=== PATIENT | female | born 1950 | race Caucasian/White ===

== ENCOUNTER 2021-06-04 20:13 | Inpatient (IN) ==
[2021-06-04] MEDS ORDERED: Lactated Ringers 1000 ml BAG 1,000 ML IV ONE (20:42)
[2021-06-04 20:55] LABS: Hematocrit 32 % (35-47); Hemoglobin 10.5 g/dL (12.0-16.0); Mean Corpuscular HGB Conc 33 g/dL (31-36); Mean Corpuscular Hemoglobin 32 pg (27-31); Mean Corpuscular Volume 96 fL (80-97); Mean Platelet Volume 7.4 fL (7.4-10.4); Platelet Count 429 10^3/uL (150-450); Red Blood Count 3.28 10^6 /uL (3.70-4.87); Red Cell Distribution Width 14 % (10-15); White Blood Count 11.8 10^3/uL (3.5-10.8)
[2021-06-04 21:06] LABS: ABS Basophils 0.1 10^3/ul (0-0.2); ABS Eosinophils 0.1 10^3/ul (0-0.6); ABS Lymphocytes 0.7 10^3/ul (1.0-4.8); ABS Monocytes 1.7 10^3/ul (0-0.8); ABS Neutrophils 9.2 10^3/ul (1.5-7.7); Eosinophil % 0.4 %; Lymphocyte % 6.2 %
[2021-06-04 21:12] LABS: ALT 11 U/L (7-52); AST 28 U/L (13-39); Albumin 3.8 g/dL (3.2-5.2); Albumin/Globulin Ratio 1.4 (1-3); Alkaline Phosphatase 66 U/L (35-149); Anion Gap 10 mmol/L (2-11); Blood Urea Nitrogen 50 mg/dL (6-24); C Reactive Protein 70.26 mg/L (<8.01); CO2 Carbon Dioxide 23 mmol/L (22-32); Chloride 98 mmol/L (101-111); EGFR African American 18.8 (>60); EGFR Non-African American 15.5 (>60); Globulin 2.8 g/dL (2-4); Glucose 77 mg/dL (70-100); Potassium 4.1 mmol/L (3.5-5.0); Sodium 131 mmol/L (135-145); Total Protein 6.6 g/dL (6.4-8.9)
[2021-06-04 21:33] LABS: Calcium 15.8 mg/dL (8.6-10.3)
[2021-06-04 22:23] LABS: Magnesium 2.2 mg/dL (1.9-2.7); Phosphorus 5.4 mg/dL (2.5-5.0)
[2021-06-04] MEDS ORDERED: Calcitonin (Salmon) INJ 200 UNITS/ML 2 ML VIAL (400 units) IM ONE (23:28)
[2021-06-05 01:18] LABS: Cholesterol 144 mg/dL; LDL Cholesterol 70 mg/dL; Triglycerides 130 mg/dL
[2021-06-05 01:20] LABS: % Iron Saturation 12 % (15-55); Iron 29 ug/dL (50-212); Total Iron Binding Capacity 252 mcg/dL (250-450); Transferrin 180 mg/dL (203-362); Unsaturated Iron Binding < 237 ug/dL
[2021-06-05 01:33] LABS: Rapid COVID-19 Molecular Undetected (Undetected)
[2021-06-05 01:45] LABS: Ferritin 299.9 ng/mL (11-307)
[2021-06-05 01:47] LABS: Folate > 20.00 ng/mL (5.90-24.80)
[2021-06-05 01:48] LABS: Vitamin B12 520 pg/mL (180-914)
[2021-06-05 01:52] LABS: Vitamin D Total 25(OH) 46.1 ng/mL (20-50)
[2021-06-05] MEDS ORDERED: Lactated Ringers 1000 ml BAG 1,000 ML IV SCH ×2 (02:00)
[2021-06-05 02:03] LABS: Urine Appearance Cloudy; Urine Bilirubin Negative (Negative); Urine Blood 2+ (Negative); Urine Color Yellow; Urine Glucose Negative (Negative); Urine Ketones Negative (Negative); Urine Nitrite Negative (Negative); Urine Protein Negative (Negative); Urine Specific Gravity 1.009 (1.002-1.030); Urine Urobilinogen Negative (Negative)
[2021-06-05 02:06] LABS: Urine Bacteria Absent (Absent); Urine Red Blood Cell Trace(0-2/hpf) (Absent); Urine Squamous Epithelial Cell Present (Absent); Urine White Blood Cell 2+(11-20/hpf) (Absent)
[2021-06-05 02:28] LABS: Calcium (PTH Intact) 14.8 mg/dL (8.6-10.3)
[2021-06-05] MEDS ORDERED: Dextrose 50% Syringe 50 ml 25 GM/50 ML SYRINGE IV PUSH ONE (03:20)
[2021-06-05 06:22] LABS: Venous Bicarbonate HCO3 24.4 mmol/L (24-28)
[2021-06-05 07:01] LABS: TSH Ultra Thyroid Stim Horm 3.32 mcIU/mL (0.34-5.60)
[2021-06-05 07:03] LABS: ALT 16 U/L (7-52); AST 48 U/L (13-39); Albumin 3.4 g/dL (3.2-5.2); Albumin/Globulin Ratio 1.3 (1-3); Alkaline Phosphatase 66 U/L (35-149); Anion Gap 11 mmol/L (2-11); Blood Urea Nitrogen 49 mg/dL (6-24); CO2 Carbon Dioxide 23 mmol/L (22-32); Chloride 99 mmol/L (101-111); EGFR African American 19.7 (>60); EGFR Non-African American 16.3 (>60); Globulin 2.7 g/dL (2-4); Glucose 181 mg/dL (70-100); Potassium 4.1 mmol/L (3.5-5.0); Sodium 133 mmol/L (135-145); Total Protein 6.1 g/dL (6.4-8.9)
[2021-06-05 07:04] LABS: ABS Eosinophils 0.1 10^3/ul (0-0.6); ABS Lymphocytes 0.7 10^3/ul (1.0-4.8); ABS Monocytes 1.5 10^3/ul (0-0.8); ABS Neutrophils 8.3 10^3/ul (1.5-7.7); Eosinophil % 0.5 %; Hematocrit 30 % (35-47); Hemoglobin 10.5 g/dL (12.0-16.0); Lymphocyte % 6.3 %; Mean Corpuscular HGB Conc 35 g/dL (31-36); Mean Corpuscular Hemoglobin 33 pg (27-31); Mean Corpuscular Volume 96 fL (80-97); Mean Platelet Volume 7.8 fL (7.4-10.4); Platelet Count 349 10^3/uL (150-450); Red Blood Count 3.16 10^6 /uL (3.70-4.87); Red Cell Distribution Width 14 % (10-15); White Blood Count 10.5 10^3/uL (3.5-10.8)
[2021-06-05 07:12] LABS: Calcium 14.1 mg/dL (8.6-10.3)
[2021-06-05] MEDS: Polyethylene Glycol 3350 17 GM PACKET PO SCH (08:43)
[2021-06-05 09:00] LABS: Lipase < 10 U/L (11.0-82.0)
[2021-06-05] MEDS ORDERED: NS 0.9% 500 ml BAG 500 ML IV ONE (10:08)
[2021-06-05] MEDS ORDERED: NS 0.9% 1000 ml BAG 1,000 ML IV SCH (10:15)
[2021-06-05 12:56] LABS: LDH 260 U/L (140-271)
[2021-06-05 13:02] LABS: Uric Acid 10.7 mg/dL (2.3-6.6)
[2021-06-05] MEDS ORDERED: Zoledronic Acid 4 MG in NS 0.9% 100 ml BAG 100 ML IVPB ONE (13:19)
[2021-06-05] MEDS: oxyCODONE/Acetamin 5/325 mg TAB PO PRN (14:41)
[2021-06-05 15:12] LABS: Calcium 12.6 mg/dL (8.6-10.3); Potassium 4.8 mmol/L (3.5-5.0)
[2021-06-05] MEDS ORDERED: Dextrose 50% Syringe 50 ml 25 GM/50 ML SYRINGE IV PUSH PRN (15:13)
[2021-06-05 18:40] LABS: Potassium 4.7 mmol/L (3.5-5.0)
[2021-06-05] MEDS ORDERED: Insulin GLARGINE 100 un/ml 10 ml VIAL SUBCUT SCH (21:00)
[2021-06-05] MEDS ORDERED: Calcitonin (Salmon) INJ 200 UNITS/ML 2 ML VIAL (400 units) SUBCUT SCH (21:00)
[2021-06-06] MEDS ORDERED: NS 0.9% 1000 ml BAG 1,000 ML IV SCH ×2 (01:00→13:13)
[2021-06-06 06:57] LABS: ABS Lymphocytes 0.7 10^3/ul (1.0-4.8); ABS Neutrophils 14.4 10^3/ul (1.5-7.7); Hematocrit 27 % (35-47); Hemoglobin 9.3 g/dL (12.0-16.0); Mean Corpuscular HGB Conc 34 g/dL (31-36); Mean Corpuscular Hemoglobin 33 pg (27-31); Mean Corpuscular Volume 96 fL (80-97); Mean Platelet Volume 7.8 fL (7.4-10.4); Platelet Count 353 10^3/uL (150-450); Red Blood Count 2.83 10^6 /uL (3.70-4.87); Red Cell Distribution Width 14 % (10-15); White Blood Count 16.1 10^3/uL (3.5-10.8)
[2021-06-06 07:10] LABS: Calcium 11.4 mg/dL (8.6-10.3); Potassium 4.3 mmol/L (3.5-5.0); Uric Acid 11.6 mg/dL (2.3-6.6)
[2021-06-06 08:14] LABS: Magnesium 1.9 mg/dL (1.9-2.7); Phosphorus 5.1 mg/dL (2.5-5.0)
[2021-06-06] MEDS: Polyethylene Glycol 3350 17 GM PACKET PO SCH (09:10)
[2021-06-06] MEDS: Pantoprazole VIAL 40 MG VIAL IV SCH ×2 (09:36→20:34)
[2021-06-06] MEDS ORDERED: Ondansetron 4 mg VIAL 2 MG/ML 2 ml VIAL IV PRN (13:12)
[2021-06-06 13:42] LABS: INR 1.6 (0.86-1.15)
[2021-06-06] MEDS: oxyCODONE/Acetamin 5/325 mg TAB PO PRN ×2 (13:44→21:18)
[2021-06-06 19:12] LABS: Hematocrit 26 % (35-47); Hemoglobin 8.9 g/dL (12.0-16.0); Mean Corpuscular HGB Conc 35 g/dL (31-36); Mean Corpuscular Hemoglobin 33 pg (27-31); Mean Corpuscular Volume 96 fL (80-97); Mean Platelet Volume 7.3 fL (7.4-10.4); Platelet Count 345 10^3/uL (150-450); Red Blood Count 2.66 10^6 /uL (3.70-4.87); Red Cell Distribution Width 14 % (10-15); White Blood Count 17.3 10^3/uL (3.5-10.8)
[2021-06-06 19:33] LABS: Calcium 10.1 mg/dL (8.6-10.3); Potassium 3.7 mmol/L (3.5-5.0)
[2021-06-06] MEDS ORDERED: Insulin GLARGINE 100 un/ml 10 ml VIAL SUBCUT SCH (21:00)
[2021-06-06] MEDS: Insulin GLARGINE 100 un/ml 10 ml VIAL SUBCUT SCH (21:07)
[2021-06-06] MEDS: NS 0.9% 1000 ml BAG 1,000 ML IV SCH (21:09)
[2021-06-07] MEDS: NS 0.9% 1000 ml BAG 1,000 ML IV SCH (04:35)
[2021-06-07 06:33] LABS: ABS Lymphocytes 0.5 10^3/ul (1.0-4.8); ABS Monocytes 1.3 10^3/ul (0-0.8); Hematocrit 26 % (35-47); Hemoglobin 8.6 g/dL (12.0-16.0); Lymphocyte % 3.7 %; Mean Corpuscular HGB Conc 33 g/dL (31-36); Mean Corpuscular Hemoglobin 32 pg (27-31); Mean Corpuscular Volume 96 fL (80-97); Mean Platelet Volume 7.5 fL (7.4-10.4); Platelet Count 348 10^3/uL (150-450); Red Blood Count 2.68 10^6 /uL (3.70-4.87); Red Cell Distribution Width 14 % (10-15); White Blood Count 14.9 10^3/uL (3.5-10.8)
[2021-06-07 07:09] LABS: Calcium 9.5 mg/dL (8.6-10.3); Potassium 3.5 mmol/L (3.5-5.0); Uric Acid 10.2 mg/dL (2.3-6.6)
[2021-06-07] MEDS: Pantoprazole VIAL 40 MG VIAL IV SCH ×2 (08:32→19:57)
[2021-06-07] MEDS: Polyethylene Glycol 3350 17 GM PACKET PO SCH (08:33)
[2021-06-07] MEDS ORDERED: fentaNYL 100 mcg/2 ml 50 MCG/ML VIAL ONE (10:20)
[2021-06-07] MEDS: oxyCODONE/Acetamin 5/325 mg TAB PO PRN ×2 (13:58→19:58)
[2021-06-07] MEDS: Insulin GLARGINE 100 un/ml 10 ml VIAL SUBCUT SCH (19:53)
[2021-06-08] MEDS: oxyCODONE/Acetamin 5/325 mg TAB PO PRN ×2 (05:01→12:46)
[2021-06-08 07:12] LABS: Hematocrit 25 % (35-47); Hemoglobin 8.5 g/dL (12.0-16.0); Mean Corpuscular HGB Conc 34 g/dL (31-36); Mean Corpuscular Hemoglobin 33 pg (27-31); Mean Corpuscular Volume 96 fL (80-97); Mean Platelet Volume 7.3 fL (7.4-10.4); Platelet Count 299 10^3/uL (150-450); Red Cell Distribution Width 14 % (10-15); White Blood Count 11.4 10^3/uL (3.5-10.8)
[2021-06-08 07:28] LABS: Calcium 9.1 mg/dL (8.6-10.3); Potassium 3.7 mmol/L (3.5-5.0)
[2021-06-08 08:37] LABS: XCalcitriol 97 pg/mL (18-78)
[2021-06-08] MEDS: Pantoprazole VIAL 40 MG VIAL IV SCH (09:11)
[2021-06-08] MEDS: Polyethylene Glycol 3350 17 GM PACKET PO SCH (09:15)
[2021-06-08 17:54] VITALS: BP 128/50
== END 2021-06-08 17:06 | disposition short-term general hospital (02) | DRG 824 ==
LOC: ED 20:13 → EDHOLD 22:48 → SUATTDRO 22:48 → MEDTELE 06-05 03:21
PROVIDERS: ADMIT Internal Medicine; ATTEND Hospitalist